=== PATIENT | female | born 1965 | race Two or more races ===

== ENCOUNTER 2022-12-29 08:47 | Outpatient (CLI) | payer OTHER | END 2022-12-29 08:56 | disposition home or self-care (01) | LOC: RAD 08:47 | PROVIDERS: ATTEND Orthopaedic Surgery | DX: M25.552 Pain in left hip (principal); Z76.89 Persons encountering health services in other specified circumstances ==

== ENCOUNTER → 2023-01-01 06:00 | Outpatient (CLI) | payer OTHER ==
[~2023-01-01] VITALS: Ht 165.1 cm; Wt 99.8 kg
[~2023-01-01 06:00] MED LIST: CELEXA40 MG PO; KEPPRA500 MG PO; LASIX20 MG PO; NORVASC5 MG PO; SEROQUEL400 MG PO; VASOTEC20 MG; WELLBUTRIN XL300 MG PO
== END | disposition home or self-care (01) ==
LOC: LAB 06:00 → CIR.AMB 01-04 12:30 → EDSTATUS 01-04 15:47
PROVIDERS: ATTEND Orthopaedic Surgery
DX: S52.532A Colles' fracture of left radius, initial encounter for closed fracture (principal); Z20.822 Contact with and (suspected) exposure to COVID-19; D64.89 Other specified anemias; E88.89 Other specified metabolic disorders; D68.8 Other specified coagulation defects; N39.0 Urinary tract infection, site not specified; A49.02 Methicillin resistant Staphylococcus aureus infection, unspecified site; E11.9 Type 2 diabetes mellitus without complications; I49.9 Cardiac arrhythmia, unspecified; I10 Essential (primary) hypertension

== ENCOUNTER 2023-01-04 10:09 | Outpatient (CLI) | payer OTHER | END 2023-01-04 10:10 | disposition home or self-care (01) | LOC: LAB 10:09 | DX: E78.6 Lipoprotein deficiency (principal) ==

== ENCOUNTER 2023-01-04 12:19 | Outpatient (CLI) | payer OTHER | END 2023-01-04 12:31 | disposition home or self-care (01) | LOC: RAD 12:19 | PROVIDERS: ATTEND Orthopaedic Surgery | DX: M25.532 Pain in left wrist (principal) ==

== ENCOUNTER 2023-01-04 13:31 | Inpatient (IN) | payer OTHER ==
[~2023-01-04] VITALS: Ht 165.1 cm; Wt 97.5 kg
--- NOTE | 2023-01-04 14:32 | NUR ---
SE RECIBE PTE ALRTA Y ORIENTADO X3 PTE REFIERE QUE SE ARNIE [facility] [place] LA MISMA INDICA VENIR DE LA DIONICINA [address] [place] [address]. HOY LE IBA REALIZAR PROCEDIMIENTO Y SE LO CANCELARON POR POTASSIO BAJO. SE OMAR VITALES Y SE EMMA EN OBSERVACION
== END 2023-01-12 15:52 | disposition home or self-care (01) | DRG 502 ==
LOC: ER 13:31 → MEDJ 20:07
PROVIDERS: Nurse Practitioner Family; Orthopaedic Surgery; ADMIT Internal Medicine; ATTEND Internal Medicine
PROC: 02HV33Z Insertion of Infusion Device into Superior Vena Cava, Percutaneous Approach (ICD-10-PCS; 2023-01-09)
PROC: 0PSJ04Z Reposition Left Radius with Internal Fixation Device, Open Approach (ICD-10-PCS; 2023-01-11)
PROC: 0L860ZZ Division of Left Lower Arm and Wrist Tendon, Open Approach (ICD-10-PCS; principal; 2023-01-11 09:45)
DX: S52.572A Other intraarticular fracture of lower end of left radius, initial encounter for closed fracture (principal); S52.612A Displaced fracture of left ulna styloid process, initial encounter for closed fracture; M65.4 Radial styloid tenosynovitis [de Quervain]; E87.6 Hypokalemia; I10 Essential (primary) hypertension; F20.9 Schizophrenia, unspecified; Z20.822 Contact with and (suspected) exposure to COVID-19